=== PATIENT | male | born 1980 | race Caucasian/White ===

== ENCOUNTER → 2018-08-19 | Outpatient (CLI) | payer OTHER ==
[2018-08-19 16:03] LABS: Adenovirus F 40/41 Not Detected (NOT DETECT); Astrovirus Not Detected (NOT DETECT); Campylobacter Sp Not Detected (NOT DETECT); Cryptosporidium Not Detected (NOT DETECT); Cyclospora Cayetanensis Not Detected (NOT DETECT); E. Coli O157 Not Detected (NOT DETECT); Entamoeba Histolytica Not Detected (NOT DETECT); Enteroaggregative E. coli-EAEC Not Detected (NOT DETECT); Enteropathogenic E. coli-EPEC Not Detected (NOT DETECT); Enterotoxigenic E. coli-ETEC Not Detected (NOT DETECT); Giardia Lamblia Not Detected (NOT DETECT); Norovirus GI/GII Not Detected (NOT DETECT); Plesiomonas Shigelloides Not Detected (NOT DETECT); Rotavirus A Not Detected (NOT DETECT); Salmonella Sp Not Detected (NOT DETECT); Sapovirus Not Detected (NOT DETECT); Shiga Toxin-prod E. coli-STEC Not Detected (NOT DETECT); Shigella/Enteroin E. coli-EIEC Not Detected (NOT DETECT); Vibrio Cholerae Not Detected (NOT DETECT); Vibrio Sp Not Detected (NOT DETECT); Yersinia Enterocolitica Not Detected (NOT DETECT)
== END | disposition home or self-care (01) ==
LOC: LAB 13:49 → LAB SHORT 13:49
PROVIDERS: Emergency Medicine
DX: R19.7 Diarrhea, unspecified (principal)
CPT/HCPCS: 87507

== ENCOUNTER 2022-02-15 04:34 | Inpatient (IN) | payer OTHER ==
[~2022-02-15] VITALS: Ht 188 cm; Wt 145.9 kg
[2022-02-15 05:16] LABS: BASOPHILS ABSOLUTE AUTO 0.04 K/mm3 (0.00-0.23); BASOPHILS PERCENT AUTO 0 % (0-2); EOSINOPHILS ABSOLUTE AUTO 0.23 K/mm3 (0.00-0.68); EOSINOPHILS PERCENT AUTO 3 % (0-6); Hematocrit 40.3 % (37.0-53.0); Hemoglobin 13.5 g/dL (13.5-17.5); IMMATURE GRAN ABSOLUTE AUTO 0.06 K/mm3 (0.00-0.10); IMMATURE GRAN PERCENT AUTO 1 % (0-1); LYMPHOCYTES ABSOLUTE AUTO 3.81 K/mm3 (0.84-5.20); LYMPHOCYTES PERCENT AUTO 41 % (21-46); MONOCYTES ABSOLUTE AUTO 0.81 K/mm3 (0.16-1.47); MONOCYTES PERCENT AUTO 9 % (4-13); Mean Corpuscular HGB 29.9 pg (26.0-34.0); Mean Corpuscular HGB Conc 33.5 g/dL (31.5-36.5); Mean Corpuscular Volume 89 fL (80-100); Mean Platelet Volume 9.2 fL (9.1-12.4); NEUTROPHILS ABSOLUTE AUTO 4.33 K/mm3 (1.96-9.15); NEUTROPHILS PERCENT AUTO 47 % (41-73); Platelet Count 352 K/mm3 (150-400); RDW Coefficient Variation 12.1 % (11.7-14.2); RDW Standard Deviation 39.7 fL (35.1-46.3); Red Blood Cell Count 4.51 M/mm3 (4.30-5.90); White Blood Cell Count 9.28 K/mm3 (4.00-11.30)
[2022-02-15 05:25] LABS: Calcium, Blood 8.4 mg/dL (8.5-10.1); Creatinine, Blood 0.89 mg/dL (0.60-1.20); Potassium, Blood 3.8 mmol/L (3.5-5.5)
[2022-02-15 09:40] LABS: Anti-Xa UFH, PHA Monitoring <0.10 IU/mL; International Normalized Ratio 0.98; Prothrombin Time Results 10.3 Sec (9.7-11.5)
[2022-02-15 09:54] LABS: U Amphetamine Screen Not Detected; U Barbituate Screen Not Detected; U Benzodiazapine Screen Not Detected; U Buprenorphine Screen Not Detected; U Cannabinoids Screen Not Detected; U Cocaine Screen Not Detected; U Methadone Screen Not Detected; U Methamphetamine Screen Not Detected; U Opiates Screen Not Detected; U Oxycodone Screen Not Detected; U Phencyclidine Screen Not Detected; U Propoxyphene Screen Not Detected
[2022-02-15 10:27] LABS: Albumin, Blood 3.5 g/dL (3.4-5.0); Bilirubin, Total 0.4 mg/dL (0.1-1.0); Bun/Creatinine Ratio 17.6 (12.0-20.0); Creatinine, Blood 0.8 mg/dL (0.60-1.20); Globulin, Blood 3.5 g/dL (2.2-4.0); Potassium, Blood 4.2 mmol/L (3.5-5.5)
[2022-02-15 10:33] LABS: CHOL/HDL RATIO 4.6; Cholesterol 184 mg/dL (50-200); HDL Cholesterol 40 mg/dL (>39); LDL/HDL RATIO 3.1; Low Density Lipoprotein Chol 124 mg/dL (0-110); Triglycerides 98 mg/dL (30-160); Very Low Density Lipoprot Chol 19 mg/dL (6-32)
[2022-02-15] MEDS ORDERED: OMEP20ER PO (11:09)
--- NOTE | 2022-02-15 15:51 | NUR ---
Pt reporting headache and vision changes, vss, perrla, neuro assessment otherwise unchanged. Notified Dr Chang, new order for stat head ct and d/c nitro paste. Will continue to monitor.
--- NOTE | 2022-02-15 18:50 | NUR ---
Shift Summary Received report from SYDNEY Rizzo in ed. Pt to room, sba tranfer to bed. Pt oriented to room and call light. Pt alert, oriented x4; calm and cooperative with care. Ls clear, dim bases, spo2 >90% on ra, breathing even and unlabored. Tele sinus 70's, bp elevated but stable. Pt reporing chest pain 1/10, nitro paste in place to left chest. Abd moderate distention, soft, nontender. Pt to laboratory engineer this afternoon, one stent placed to lad, right radial site, no bleeidng bruising or hematoma. Tr band deflated at approx 1840, no brusing, bleeding or hematoma. Post angio pt reporting headache and vision changes, notified Dr Chang, new order for stat head ct, results called to dr Chang, new order entered for medications and diet. No other acute changes noted. Will continue to monitor until report given to oncoming rn.
[2022-02-16 05:08] LABS: Hematocrit 38.7 % (37.0-53.0); Hemoglobin 13.1 g/dL (13.5-17.5); Mean Corpuscular HGB Conc 33.9 g/dL (31.5-36.5); Mean Corpuscular Volume 89 fL (80-100); Mean Platelet Volume 8.9 fL (9.1-12.4); Platelet Count 295 K/mm3 (150-400); RDW Coefficient Variation 12.1 % (11.7-14.2); RDW Standard Deviation 38.9 fL (35.1-46.3); Red Blood Cell Count 4.37 M/mm3 (4.30-5.90)
--- NOTE | 2022-02-16 05:16 | NUR ---
SHIFT SUMMARY PT ALERT AND ORIENTED X4. AFBERILE. HR SR 60-80'S. BP STABLE. ON RA SATS OVER 98%. TR BAND OFF AT 1945. R RADIAL SITE C/D/I, NO COMPLAINT OF PAIN OR DISCOMFORT. INDEPENDENT FOR ADL'S. IN BED SLEEPING WITH CALL ALARM AT SIDE, WILL CONTINUE TO MONITOR UNTIL REPORT GIVEN TO ONCOMING RN
[2022-02-16 05:37] LABS: Bun/Creatinine Ratio 14.4 (12.0-20.0); Calcium, Blood 8.4 mg/dL (8.5-10.1); Creatinine, Blood 0.77 mg/dL (0.60-1.20); Potassium, Blood 4.2 mmol/L (3.5-5.5)
[2022-02-16] MEDS ORDERED: ASPI81CH PO (11:27)
[2022-02-16] MEDS ORDERED: CLOP75 PO (11:27)
[2022-02-16] MEDS ORDERED: ATOR80 PO (11:27)
[2022-02-16] MEDS ORDERED: PANT20 PO (11:28)
[2022-02-16] MEDS ORDERED: METO25 PO (11:28)
--- NOTE | 2022-02-16 11:59 | NUR ---
RX faxed to [facility] per pt request. Pt states his PCP is Sara Lion; however, he has not been to the doctor since 2016. He will have to re-establish as a new patient, if possible. In the meantime, for his 72 hour hospital follow up, he was instructed to call his insurance company to get a provider currently accepting new patients within their network. A list of local providers was also given to the patient. He was quite amenable to this. Discharge instructions were given, including care of the right radial arterial access site, activity restrictions of the same, new prescriptions, and information about NSTEMI and angiogram with stent. All the information was reivewed verbally and written forms were given to the patient. He declined a wheelchair discharge, and instead walked out accompanied by his to their private vehicle.
== END 2022-02-16 12:04 | disposition home or self-care (01) | DRG 247 ==
LOC: ER 04:34 → PCU 10:11
PROVIDERS: Nurse Practitioner Acute Care; Student in an Organized Health Care Education/Training Program; ADMIT Hospitalist
PROC: 027034Z Dilation of Coronary Artery, One Artery with Drug-eluting Intraluminal Device, Percutaneous Approach (ICD-10-PCS; principal; 2022-02-15)
PROC: 4A023N7 Measurement of Cardiac Sampling and Pressure, Left Heart, Percutaneous Approach (ICD-10-PCS; 2022-02-15)
PROC: B24BZZ3 Ultrasonography of Heart with Aorta, Intravascular (ICD-10-PCS; 2022-02-15)
DX: I21.4 Non-ST elevation (NSTEMI) myocardial infarction (principal); I10 Essential (primary) hypertension; R73.03 Prediabetes; R51.9 Headache, unspecified; K21.9 Gastro-esophageal reflux disease without esophagitis; Z98.890 Other specified postprocedural states; Z79.899 Other long term (current) drug therapy
CPT/HCPCS: 36415; 70450; 71046; 76937; 80048; 80053; 80061; 83036; 83735; 83880; 84484; 85025; 85027; 85347; 85379; 85520; 85610; 85730; 92978; 93005; 93010; 93306; 93454; 96365; 96375; 99152; 99153; 99285-25; A9270; C1725; C1753; C1769; C1874; C1887; C1894; C9600; J1644; J2250; J2270; J3010; J7030; J7040; Q9967

== ENCOUNTER → 2023-09-02 | Outpatient (CLI) | payer OTHER ==
[~2023-09-02] MED LIST: ASPI81CH PO; ATOR80 PO; CLOP75 PO; METO25 PO; OMEP20ER PO; PANT20 PO
== END | disposition home or self-care (01) ==
LOC: LAB SHORT 16:32 → LAB 16:32
DX: R35.89 Other polyuria (principal)
CPT/HCPCS: 87086